=== PATIENT | female | born 1985 | race Caucasian/White ===

== ENCOUNTER 2016-11-02 01:07 | Emergency (ER) | payer MEDICAID ==
--- NOTE | 2016-11-02 01:45 | EDM.PDOC ---
ED HPI GENERAL MEDICAL PROBLEM - General Chief Complaint: Diabetic Complaint Stated Complaint: MEDICAL [facility]IA [facility] Time Seen by Provider: 11/02/16 01:28 Source of Information: Reports: Patient, EMS, Old Records, RN Notes Reviewed History Limitations: Reports: Other (amnestic for the event) - History of Present Illness INITIAL COMMENTS - FREE TEXT/NARRATIVE: EMS arrival, EMS was called by her [id number] son Chief complaint: Low blood sugar, seizure HPI: 31-year-old female with type 1 diabetes since aged 9 And became much more difficult to control after her childbirth about 6 years ago. Additionally for a while she was out of insurance she couldn't test her sugars she had no strips and then did not have a machine EMS as been called replaced several times for symptoms of a low blood sugar Lives with her son and , but was out of town working as he is frequently Her son knows to call 911 when mom becomes unresponsive Her son did notify EMS tonight They report several visits to the home because of low sugars. However the first time the blood sugar registered "low" without giving a number. A. treated with the usual probe which is glucagon 1 mg IM and oral glucose solution. However while they were there she had a generalized grand mal seizure lasting at least 3 minutes. She does not room for the event She reports she has had seizures previously She states that she's become unaware of when she feels that her sugars will She also states it diabetes become such secondary to to her that sometimes she has given himself 2 injections of insulin. Now she does have a glucose meter and has started recording in the last 2 days She will be followed up by her physician who will adjust her insulin doses based on her readings She currently takes Lantus 30 units at bedtime and 5 units of short-acting insulin for carbohydrate equivalent. Feels well currently. No recent cough cold infection or fever - Related Data Allergies Allergy/AdvReac Type Severity Reaction Status Date / Time aspirin Allergy Hives Verified 07/14/16 19:15 azithromycin [From Zithromax] Allergy Anaphylactic Verified 07/14/16 19:15 Shock cefaclor [From Ceclor] Allergy Hives Verified 07/14/16 19:15 Penicillins Allergy Hives Verified 07/14/16 19:15 Home Meds: Home Meds Insulin Aspart [NovoLOG] 5 unit SUBCUT WITHMEALSANDBED 11/02/16 [History] Insulin Glarg,Human.Rec.Analog [LantUS Solostar] 30 unit SQ BEDTIME 11/02/16 [ History] Past Medical History HEENT History: Reports: Impaired Vision 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 Denies: Chest Pain Endocrine: Reports: No Symptoms GI/Abdominal: Reports: No Symptoms : Reports: No Symptoms Musculoskeletal: Reports: No Symptoms Skin: Reports: No Symptoms Neurological: Reports: Seizure Psychiatric: Reports: No Symptoms ED EXAM GENERAL NO PERIP PULSE - Physical Exam Exam: See Below Exam Limited By: No Limitations General Appearance: Alert, No Apparent Distress, Other (mild tachycardia and elevation of systolic blood pressure otherwise appears well) Eye Exam: Bilateral Eye: Normal Inspection Ears: Normal External Exam Nose: Normal Inspection Throat/Mouth: Normal Oropharynx, Other (there is a bite on the left edge of the tongue) Neck: Normal Inspection. No: Lymphadenopathy (R), Lymphadenopathy (L) Respiratory/Chest: No Respiratory Distress, Lungs Clear, No Accessory Muscle Use Cardiovascular: Normal Peripheral Pulses, Regular Rate, Rhythm, Tachycardia Neurological: Alert, Oriented, No Motor/Sensory Deficits Course - Vital Signs Last Recorded V/S: Last Vital Signs Temp 37.1 C 11/02/16 01:10 Pulse 114 H 11/02/16 02:21 Resp 18 11/02/16 01:10 BP 128/74 11/02/16 04:46 Pulse Ox 93 L 11/02/16 02:21 - Orders/Labs/Meds Orders: Active Orders 24 hr Category Date Time Status Sodium Chloride 0.9% [Saline Flush] Med 11/02/16 03:45 Active 10 ml FLUSH ASDIRECTED PRN Saline Lock Insert [OM.PC] Stat Oth 11/02/16 03:45 Ordered Medication Orders Sodium Chloride (Saline Flush) 10 ml FLUSH ASDIRECTED PRN PRN Reason: Keep Vein Open Last Admin: 11/02/16 04:43 Dose: 10 ml Meds: Medications Generic Name Dose Route Start Last Admin Trade Name Jeanine PRN Reason Stop Dose Admin Sodium Chloride 10 ml 11/02/16 03:45 11/02/16 04:43 Saline Flush FLUSH 10 ml ASDIRECTED PRN Administration Keep Vein Open Discontinued Medications Generic Name Dose Route Start Last Admin Trade Name Jeanine PRN Reason Stop Dose Admin Dextrose/Water 25 ml 11/02/16 03:32 11/02/16 03:36 Dextrose 50% In Water IVPUSH 11/02/16 03:33 25 ml ONETIME ONE Administration Dextrose/Water 25 ml 11/02/16 04:39 11/02/16 04:43 Dextrose 50% In Water IVPUSH 11/02/16 04:40 25 ml ONETIME ONE Administration - Re-Assessments/Exams Free Text/Narrative Re-Assessment/Exam: 11/02/16 01:48 31-year-old female with type 1 diabetes with recurrent hypoglycemic episodes recently Next hyperglycemic episode was accompanied by grand mal seizure Feels better at the present time However her initial POC glucose was 66 Will be fed, glucose will be rechecked 11/02/16 03:44 03.30 blood sugar remains well below 100 and is trending downwards below 50, IV started 25 mL D50 W. IV 11/02/16 07:02 1/2 amp was repeated at glucose 71 07.00 glucose 83 discharge home Reduce Lantus To 25 units daily Followup with primary care as soon as possible Departure - Departure Time of Disposition: 07:14 Disposition: Home, Self-Care 01 Condition: good Clinical Impression: Hypoglycemia Diabetes mellitus type 1 Qualifiers: Diabetes mellitus complication status: with hypoglycemia Diabetes mellitus complication detail: without coma Qualified Code(s): E10.649 - Type 1 diabetes mellitus with hypoglycemia without coma - Discharge Information Instructions: Type 1 Diabetes Mellitus, Adult Referrals: PCP,None [Primary Care Provider] - Forms: ED Department Discharge Additional Instructions: Reduce your Lantus from 30 units to 25 units daily Check your blood sugars more regularly until you find the correct insulin dosing. You may need to reduce your fast acting insulin as well Make an appointment with your Dr. if surgery can make sure you keep records of your blood sugars - My Orders Last 24 Hours: My Active Orders 11/02/16 03:45 Sodium Chloride 0.9% [Saline Flush] 10 ml FLUSH ASDIRECTED PRN Saline Lock Insert [OM.PC] Stat - Assessment/Plan Last 24 Hours: My Active Orders 11/02/16 03:45 Sodium Chloride 0.9% [Saline Flush] 10 ml FLUSH ASDIRECTED PRN Saline Lock Insert [OM.PC] Stat
[2016-11-02] MEDS ORDERED: 50% Dextrose in Water 50 ML Syringe IVPUSH ONE ×2 (03:32→04:39)
[2016-11-02] MEDS ORDERED: Sodium Chloride 0.9% 10 ML Syringe FLUSH PRN (03:45)
[2016-11-02 04:48] VITALS: BP 128/74
== END 2016-11-02 08:35 | disposition home or self-care (01) ==
LOC: JP.ED 01:07
DX: E10.649 Type 1 diabetes mellitus with hypoglycemia without coma (principal); Z79.4 Long term (current) use of insulin; Z88.0 Allergy status to penicillin; Z88.1 Allergy status to other antibiotic agents; Z88.8 Allergy status to other drugs, medicaments and biological substances; Z98.890 Other specified postprocedural states
CPT/HCPCS: 82962; 96374; 99284; J7050

== ENCOUNTER 2017-01-25 09:50 | Emergency (ER) | payer MEDICAID ==
--- NOTE | 2017-01-25 10:57 | EDM.PDOC ---
ED HPI GENERAL MEDICAL PROBLEM - General Chief Complaint: Diabetic Complaint Stated Complaint: MEDICAL [facility] Time Seen by Provider: 01/25/17 10:00 Source of Information: Reports: Patient, EMS Notes Reviewed, Other (pt had a sugar in he 30s when the ambulance arrived. She was bearly responsive. ) History Limitations: Reports: No Limitations - History of Present Illness INITIAL COMMENTS - FREE TEXT/NARRATIVE: pt is a type 1 diabetic and had a low sugar this am. She had a very active day yesterday. Before eating super last nite she had a 46 bs. She ate supper and at about 7 thirty she did take her usual Lantus insulin, 30 units. She thinks she should have cut back on the lantus since she had a 46 bs prior to supper. She was brought recently one other time with a hypoglycemic episode in the middle of the nite. Onset: Today Duration: Hour(s): Location: Reports: Other (hypoglycemia) Associated Symptoms: Reports: No Other Symptoms - Related Data Allergies Allergy/AdvReac Type Severity Reaction Status Date / Time aspirin Allergy Hives Verified 01/25/17 10:07 azithromycin [From Zithromax] Allergy Anaphylactic Verified 01/25/17 10:07 Shock cefaclor [From Ceclor] Allergy Hives Verified 01/25/17 10:07 Penicillins Allergy Hives Verified 01/25/17 10:07 Home Meds: Home Meds Insulin Aspart [NovoLOG] 5 unit SUBCUT WITHMEALSANDBED 11/02/16 [History] Insulin Glarg,Human.Rec.Analog [LantUS Solostar] 30 unit SQ BEDTIME 11/02/16 [ History] Past Medical History HEENT History: Reports: Impaired Vision [employer] History: Reports: , Other (See Below) Other OB/BYN History: merena IUD Endocrine/Metabolic History: Reports: Diabetes, Type I - Infectious Disease History Infectious Disease History: Reports: Chicken Pox - Past Surgical History Female Surgical History: Reports: Section Social & Family History - Tobacco Use Smoking Status *Q: Never Smoker - Caffeine Use Caffeine Use: Reports: Coffee, Soda - Recreational Drug Use Recreational Drug Use: No ED ROS GENERAL - Review of Systems Review Of Systems: See Below Constitutional: Reports: No Symptoms HEENT: Reports: No Symptoms Respiratory: Reports: No Symptoms Cardiovascular: Reports: No Symptoms Endocrine: Reports: No Symptoms, Low Glucose GI/Abdominal: Reports: No Symptoms : Reports: No Symptoms Musculoskeletal: Reports: No Symptoms Skin: Reports: No Symptoms ED EXAM GENERAL NO PERIP PULSE - Physical Exam Exam: See Below Text/Narrative:: pt was found unresponsive by her son this am. She had a low sugar prior to having supper last noite. Exam Limited By: No Limitations General Appearance: Alert, Anxious Ears: Normal TMs Nose: Normal Inspection Throat/Mouth: Normal Inspection Head: Atraumatic Neck: Normal Inspection Respiratory/Chest: No Respiratory Distress Cardiovascular: Regular Rate, Rhythm GI/Abdominal: Soft, Non-Tender (Female) Exam: Deferred Rectal (Female) Exam: Deferred Back Exam: Normal Inspection Extremities: Normal Inspection Neurological: Alert, Oriented, Normal Cognition Course - Vital Signs Last Recorded V/S: Last Vital Signs Temp 37.1 C 01/25/17 15:02 Pulse 102 H 01/25/17 15:02 Resp 16 01/25/17 15:02 BP 133/65 01/25/17 15:02 Pulse Ox 100 01/25/17 15:02 - Orders/Labs/Meds Labs: Laboratory Tests 01/25/17 01/25/17 01/25/17 Range/Units 10:09 10:09 11:54 WBC 7.8 (4.5-11.0) K/uL RBC 4.52 (3.30-5.50) M/uL Hgb 13.4 D (12.0-15.0) g/dL Hct 41.5 (36.0-48.0) % MCV 92 (80-98) fL MCH 30 (27-31) pg MCHC 32 (32-36) % Plt Count 180 (150-400) K/uL Neut % (Auto) 66 (36-66) % Lymph % (Auto) 24 (24-44) % [place] % (Auto) 9 H (2-6) % Eos % (Auto) 1 L (2-4) % Baso % (Auto) 0 (0-1) % Sodium 139 L (140-148) mmol/L Potassium 3.4 L (3.6-5.2) mmol/L Chloride 106 (100-108) mmol/L Carbon Dioxide 28 D (21-32) mmol/L Anion Gap 8.4 (5.0-14.0) mmol/L BUN 11 (7-18) mg/dL Creatinine 0.9 (0.6-1.0) mg/dL Est Cr Clr Drug Dosing 81.50 mL/min Estimated GFR (MDRD) > 60 (>60) Glucose 112 H (74-106) mg/dL Calcium 8.4 L (8.5-10.1) mg/dL Total Bilirubin 0.2 D (0.2-1.0) mg/dL AST 18 (15-37) U/L ALT 27 (12-78) U/L Alkaline Phosphatase 111 (46-116) U/L Total Protein 7.3 (6.4-8.2) g/dL Albumin 3.3 L (3.4-5.0) g/dL Globulin 4.0 H (2.3-3.5) g/dL Albumin/Globulin Ratio 0.8 L (1.2-2.2) Urine Color Yellow Urine Appearance Clear Urine pH 6.0 (4.5-8.0) Ur Specific [place] 1.015 (1.008-1.030) Urine Protein Trace (NEGATIVE) mg/dL Urine Glucose (UA) 1000 H (NEGATIVE) mg/dL Urine Ketones Negative (NEGATIVE) mg/dL Urine Occult Blood Negative (NEGATIVE) Urine Nitrite Negative (NEGATIVE) Urine Bilirubin Negative (NEGATIVE) Urine Urobilinogen Normal (NORMAL) mg/dL Ur Leukocyte Esterase Large (NEGATIVE) Urine RBC 0-5 (0-5) Urine WBC 0-5 (0-5) Ur Epithelial Cells Many Amorphous Sediment Not seen Urine Bacteria Few Urine Mucus Not seen Meds: Medications Discontinued Medications Generic Name Dose Route Start Last Admin Trade Name Jeanine PRN Reason Stop Dose Admin Albuterol 2.5 mg 01/25/17 12:23 Proventil Neb Soln NEB 01/25/17 12:24 ONETIME ONE Dextrose/Sodium Chloride 1,000 mls @ 200 mls/hr 01/25/17 12:15 01/25/17 12:24 Dextrose 5%-1/2 Ns IV 200 mls/hr ASDIRECTED VISHAL Administration Lorazepam 0.5 mg 01/25/17 13:10 Ativan PO 01/25/17 13:11 ONETIME ONE - Re-Assessments/Exams Free Text/Narrative Re-Assessment/Exam: 01/25/17 12:09 pt arrived after having a hypoglycemic episode at home. Her sugar was 100 on arrival. she was fed right away and her sugar still stayed on the low side. She has had 2 glasses of oranfge juice with sugar and she is a 69 at this point. Will start an iv at 250 and watch her sugars. 01/25/17 16:04 pt is now maintaining her bs in the 169 range. Departure - Departure Time of Disposition: 16:04 Disposition: Home, Self-Care 01 Condition: Fair Clinical Impression: Hypoglycemia, Type 1 diabetes - Discharge Information Instructions: Type 1 Diabetes Mellitus, Adult, Hypoglycemia, [id number] Referrals: PCP,None [Primary Care Provider] - Forms: ED Department Discharge Care Plan Goals: push fluids, If sugars remain under 200 tonight give only 10 units of lantus tonight. After that cut the Lantus to 20-25 units at nite. Rtc if further problems. See regular provider in [place] in the next few days.
[2017-01-25] MEDS ORDERED: Dextrose 5%-0.45% NaCl 1,000 ML IV SCH (12:15)
[2017-01-25] MEDS ORDERED: Albuterol 0.083% 2.5 MG/3 ML Neb Soln NEB ONE (12:23)
[2017-01-25] MEDS ORDERED: LORazepam 0.5 MG Tab PO ONE (13:10)
[2017-01-25 15:03] VITALS: BP 133/65
== END 2017-01-25 16:23 | disposition home or self-care (01) ==
LOC: JP.ED 09:50
DX: E10.649 Type 1 diabetes mellitus with hypoglycemia without coma (principal); Z79.4 Long term (current) use of insulin; Z98.890 Other specified postprocedural states; Z88.0 Allergy status to penicillin; Z88.1 Allergy status to other antibiotic agents; Z88.8 Allergy status to other drugs, medicaments and biological substances
CPT/HCPCS: 36415; 80053; 81001; 82962; 85025; 96360; 96361; 99284; 99285-25

== ENCOUNTER 2017-08-18 04:00 | Emergency (ER) | payer BC, MEDICAID ==
[2017-08-18 04:27] VITALS: BP 173/94
--- NOTE | 2017-08-18 05:00 | EDM.PDOC ---
ED HPI GENERAL MEDICAL PROBLEM - General Chief Complaint: ENT Problem Stated Complaint: STREP? Time Seen by Provider: 08/18/17 04:49 Source of Information: Reports: Patient, Family, RN Notes Reviewed History Limitations: Reports: No Limitations - History of Present Illness INITIAL COMMENTS - FREE TEXT/NARRATIVE: 31-year-old female presents emergency department today complaint of sore throat , she states she's had sore throat for about a day and half as well as fever does have a history of recurrent sore throat Throat Pain Score (Numeric/FACES): 6 - Related Data Allergies Allergy/AdvReac Type Severity Reaction Status Date / Time aspirin Allergy Hives Verified 08/18/17 04:27 azithromycin [From Zithromax] Allergy Anaphylactic Verified 08/18/17 04:27 Shock cefaclor [From Ceclor] Allergy Hives Verified 08/18/17 04:27 Penicillins Allergy Hives Verified 08/18/17 04:27 Home Meds: Home Meds Insulin Aspart [NovoLOG] 5 unit SUBCUT WITHMEALSANDBED 11/02/16 [History] Insulin Glarg,Human.Rec.Analog [LantUS Solostar] 60 unit SQ BEDTIME 11/02/16 [ History] Lisinopril [Lisinopril] 1 tab PO DAILY 08/18/17 [History] Past Medical History HEENT History: Reports: Impaired Vision [employer] History: Reports: , Other (See Below) Other OB/BYN History: merena IUD Endocrine/Metabolic History: Reports: Diabetes, Type I - Infectious Disease History Infectious Disease History: Reports: Chicken Pox - Past Surgical History Female Surgical History: Reports: Section Social & Family History - Tobacco Use Smoking Status *Q: Never Smoker Second Hand Smoke Exposure: No - Caffeine Use Caffeine Use: Reports: Coffee, Soda, Tea - Recreational Drug Use Recreational Drug Use: No ED ROS ENT - Review of Systems Review Of Systems: See Below Constitutional: Reports: Fever HEENT: Reports: Throat Pain, Throat Swelling Respiratory: Reports: No Symptoms Cardiovascular: Reports: No Symptoms GI/Abdominal: Reports: No Symptoms : Reports: No Symptoms ED EXAM, ENT - Physical Exam Exam: See Below Exam Limited By: No Limitations General Appearance: Alert, WD/WN, No Apparent Distress Nose: Normal Inspection, Normal Mucousa, No Blood Mouth/Throat: Normal Inspection, Tonsillar Erythema, Tonsillar Exudates Head: Atraumatic, Normocephalic Neck: Normal Inspection, Supple, Non-Tender, Full Range of Motion Respiratory/Chest: No Respiratory Distress Course - Vital Signs Last Recorded V/S: Last Vital Signs Temp 100.2 F 08/18/17 04:24 Pulse 119 H 08/18/17 04:24 Resp 18 08/18/17 04:24 BP 173/94 H 08/18/17 04:24 Pulse Ox 96 08/18/17 04:24 Departure - Departure Time of Disposition: 04:59 Disposition: Home, Self-Care 01 Condition: Good Clinical Impression: Strep pharyngitis - Discharge Information Referrals: Romelia Krishna MD [Primary Care Provider] - Additional Instructions: Take antibiotics two tablet every 8 hours for 10 days, Please followup with your primary care provider in 5-7 days if not better, please call return to the emergency department with worsening of symptoms. - Assessment/Plan Plan: Assessment Acuity = acute Site and laterality = streptococcal pharyngitis Etiology = group A streptococcus Manifestations = pharyngitis Location of injury = Home Lab values = positive for group a strep Plan Has multiple allergies elected treat with clindamycin 300 mg by mouth every 8 hours 10 days follow-up with primary care 57 days if no improvement This note was dictated using [employer] voice recognition software please call with any questions on syntax or fernando.
[2017-08-18] MEDS ORDERED: Clindamycin HCl 150 MG Cap PO ONE (05:10)
== END 2017-08-18 05:22 | disposition home or self-care (01) ==
LOC: JP.ED 04:00
DX: J02.0 Streptococcal pharyngitis (principal); E11.9 Type 2 diabetes mellitus without complications; Z88.1 Allergy status to other antibiotic agents; Z88.8 Allergy status to other drugs, medicaments and biological substances; Z88.0 Allergy status to penicillin; Z79.4 Long term (current) use of insulin; Z79.899 Other long term (current) drug therapy
CPT/HCPCS: 87430; 99283; A9270